=== PATIENT | female | born 1995 | race Caucasian/White ===

== ENCOUNTER 2017-01-17 12:27 | Emergency (ER) | payer MEDICAID ==
[~2017-01-17] VITALS: Ht 157.5 cm; Wt 60.0 kg
[2017-01-17 12:41] VITALS: BP 138/82; PULSE 88; RESP 16; TEMP 98.6; O2SAT 98
--- NOTE | 2017-01-17 13:31 | PD ---
HPI Chief Complaint: Dizziness Time Seen by Provider: 12:49 Travel History International Travel<30 days: No Contact w/Intl Traveler<30days: No Traveled to known affect area: No History of Present Illness HPI To 21-year-old presents to the emergency department complaint of dizziness this morning. States she had similar symptoms when she had anxiety in the past. She states she drank 3 energy drinks last night because she was studying for [employer]. She states her mood is otherwise been well. Symptoms occurred again this morning when she was driving so she can the emergency department. No other complaints. History Past Medical History Medical History: Denies Significant Hx Social History Tobacco Use: No Allergies-Medications (Allergen,Severity, Reaction): Coded Allergies: No Known Allergies (Unverified , 01/17/17) Review of Systems Except as stated in HPI: all other systems reviewed are Neg Physical Exam Narrative GENERAL: Well-appearing 21 year-old woman, no acute distress. SKIN: Focused skin assessment warm/dry. CARDIOVASCULAR: Regular rate and rhythm. No murmur appreciated. RESPIRATORY: No accessory muscle use. Clear to auscultation. Breath sounds equal bilaterally. GASTROINTESTINAL: Abdomen soft, non-tender, nondistended. Hepatic and splenic margins not palpable. MUSCULOSKELETAL: No obvious deformities. No clubbing. No cyanosis. No edema. NEUROLOGICAL: Awake and alert. No obvious cranial nerve deficits. No nystagmus. Normal finger to nose. Normal [id number]. Motor grossly within normal limits. Normal gait. Normal speech. PSYCHIATRIC: Appropriate mood and affect; insight and judgment normal. Data Data Last Documented VS Vital Signs Date Time Temp Pulse Resp B/P (MAP) Pulse Ox O2 Delivery O2 Flow Rate FiO2 01/17/17 12:53 16 99 Room Air 01/17/17 12:41 98.6 88 138/82 (100) Orders Orders Blood Glucose (01/17/17 13:23) Ed Urine Pregnancytest Poc (01/17/17 13:23) MDM Medical Decision Making Medical Screen Exam Complete: Yes Emergency Medical Condition: Yes Differential Diagnosis Anxiety, adverse effect caffeine drinks, dehydration, other Narrative Course Medical decision making INITIAL: So well 21-year-old woman who presents to the emergency Department with dizzy symptoms. She looks well. Is likely related to anxiety or caffeine drinks. Blood sugars normal. test negative. Diagnosis Primary Impression: Dizziness and giddiness Additional Instructions: Drink plenty of fluids stay well-hydrated. Return to the emergency department for any new or worsening symptoms. Med/Other Pt SpecificInfo: No Change to Meds Disposition: 01 DISCHARGE HOME Condition: Stable Abebe Harris MD Jan 17, 2017 13:31
== END 2017-01-17 13:59 | disposition home or self-care (01) ==
LOC: NEPD 12:27
DX: R42 Dizziness and giddiness (principal); F41.9 Anxiety disorder, unspecified
CPT/HCPCS: 84703; 99282